=== PATIENT | female | born 1975 | race Caucasian/White ===

== ENCOUNTER 2021-01-28 07:48 | Inpatient (IN) | payer OTHER ==
[~2021-01-28] VITALS: Ht 160 cm; Wt 75.7 kg
[~2021-01-28 07:48] MED LIST: PHENTERMINE H37.5 M1 PO; VITAMIN C500 M2 PO; VITAMIN D350 MC3 PO
[2021-01-28 08:51] VITALS: BP 142/97
[2021-01-28 19:45] VITALS: BP 130/56
--- NOTE | 2021-01-29 02:49 | NUR ---
ADMISSION ASSESSMENT COMPLETED. PT IS ALERT AND ORIENTED. LAP SITES X 8, WITH BANDAIDS. PT VOIDING OKAY. PAIN MANAGED BY NORCO AND IV FENTANYL. ON CLEAR LIQUIDS-TOLERATING.CALLS WITH NEEDS.
[2021-01-29 04:45] VITALS: BP 128/70
[2021-01-29 08:49] VITALS: BP 122/76
--- NOTE | 2021-01-29 12:19 | NUR ---
A/O X 4. Placed on 2L O2 via nasal cannula for O2 of 89%. Right forearm IV infusing D5 0.45 20 meq @ 80 mls/hr. Has 8 abd lapsites covered with bandaids. Got up to bedaside commode with one assist. Wears ABD binder. Has 3 open areas left facial cheek where moles removed-open to air, no drainage noted.
--- NOTE | 2021-01-29 19:07 | PATH ---
[facility] [address] [place] [place] [address] PATHOLOGY RPT PROCEDURE Name: ALICIA GOMEZ Room #: 445-P [facility] M.R.#: [id number] Admission: 01/28/21 Date of : 73 Discharge: Report #: [id number] Path Case #: [id number] [facility] Accession Number: [id number] . 01 Material submitted: . face - FACIAL LESION . 01 Clinical history: . LAPAROSCOPIC HERNIA, INCISIONAL FULGURATION INCISIONAL ENCARCERATED HERNIA, FACIAL LESION . 02 Diagnosis: Skin, facial lesion, biopsy: - Intradermal nevus. - Extends to the deep margin in the sections examined. - Surface epithelium cauterized limiting interpretation. 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 02 Electronically signed: . Shona Reyes MD, Pathologist NPI- [id number] . 01 Gross description: . The specimen is received in formalin, labeled "Alicia Gomez, facial lesion-biopsy" and consists of an unoriented irregular skin shave biopsy (0.7 x 0.7 x 0.4 cm) which is surfaced with case-brown and slightly crusted skin. The surgical margin is inked black. The specimen is serially sectioned and entirely submitted in A1.(SELAWIK; 01/28/2021) DKA/DKA 01/28/2021 1710 Local . 02 Pathologist provided ICD-10: D22.39 . 02 CPT . 050701 Specimen Comment: A courtesy copy of this report has been sent to [phone] Specimen Comment: [phone] Specimen Comment: Report sent to / DR PULIDO Performed at: [address] [id number] MD Maverick Adams MD Phone: [phone] Performed at: [address] [address] PATHOLOGY RPT PROCEDURE Name: JERRICA GOMEZELLE Room #: 445-P [facility] M.RKj#: [id number] Admission: 01/28/21 Date of : 73 Discharge: Report #: [id number] Path Case #: [id number] [address] [place] [id number] MD Shona Reyes MD Phone: [phone]
[2021-01-29 19:18] VITALS: BP 157/97
--- NOTE | 2021-01-30 03:00 | NUR ---
ASSUMED CARE OF PT AT 1900. BEDSIDE REPORT RECIEVED. AYE ASSESSMENT COMPLETE. 8 LAP SITES SECURED C BANDAIDS, NO REDNESS, HEAT, OR DRAINAGE OBSERVED AT THIS TIME. IVF BAG CHANGED AND TUBING CHANGED. PT HAS CONCERNS ABOUT MD NOT SEEING PT TODAY AND CONCERNS ABOUT ABDOMINAL SPASMS . THIS NURSE NOTIFIED DR. REYES, WILL SEE PT TOMORROW, ABDOMINAL SPASMS ARE TO BE EXPECTED, NEW ORDER FOR VALIUM. WILL PROVIDE EDUCATION TO PT ONCE PT WAKES UP D/T PT NOT WANTING TO BE WOKEN UP. IVF RUNNING ORDERED. ASSISTED C REPOSITIONING. ALL NEEDS MET, CALL LIGHT IN REACH.
[2021-01-30 04:32] VITALS: BP 135/85
--- NOTE | 2021-01-30 05:08 | NUR ---
Provided pt education on what Dr. Melton relayed to me, answered pts questions, started pt on schedule valium and administered PRN norco. assisted pt to bsc and back to bed. call light in reach
[2021-01-30 08:27] VITALS: BP 139/79
--- NOTE | 2021-01-30 10:54 | NUR ---
ASSUMED PT CARE THIS AM. PT IS ALERT & ORIENTED X4. PT HAS IV SITE ON RFA. PT TOLERATED DIET THIS AM. WILL ADVANCE DIET TO REGULAR THIS LUNCH. PT IS ON ROOM AIR. PT HAS 8 LAP SITES AND ABDOMINAL BINDER ON. PT C/O OF PAIN AND GIVEN PAIN MEDICATION PER PT REQUEST. WILL CONTINUE TO MONITOR PT. FOLLOW POC.
--- NOTE | 2021-01-30 10:57 | O ---
[facility] [id number] OPERATIVE REPORT Name: ANANDA GOMEZ Room #: 445-P [facility] MBranden#: [id number] Admission: 01/28/21 Attend Phys: Roman Melton MD Discharge: Date of : 73 Report #: [id number] THIS REPORT FOR: cc: Brayan Arndt MD, John M. MD Chu,Roman Dove MD ~ DATE OF SERVICE: 01/28/2021 PREOPERATIVE DIAGNOSES: 1. Incarcerated incisional hernia. 2. Multiple facial lesion consistent with mole on the left side. POSTOPERATIVE DIAGNOSES: 1. Incarcerated incisional hernia. 2. Multiple facial lesion consistent with mole on the left side. PROCEDURE PERFORMED: 1. Laparoscopic repair of incarcerated incisional hernia with mesh and reduction of herniated content. 2. Excision and fulguration of facial skin lesion/mole x 4. ANESTHESIA: General. SURGEON: Roman Melton MD COMPLICATIONS: None. ESTIMATED BLOOD LOSS: 10 mL DESCRIPTION OF PROCEDURE: With the patient under general anesthesia, Davis catheter was placed. IV antibiotic was administered. Abdomen was prepped and draped in sterile fashion. Ioban was used over the skin of the abdomen. The patient had a pretty large hernia located in the abdomen slightly right of the midline. A left upper quadrant cutdown site was used. 0.25% Marcaine was used to anesthetize skin and subcutaneous tissue. The anterior fascia was identified. The anterior fascia was opened under visualization, 0 Vicryl suture placed on the fascial edges. Rectus muscle was spread along the length of its fiber. The posterior rectus sheath was then identified, grasped with hemostat. It was then opened under visualization. Free preperitoneal space was identified. Again, 0 Vicryl suture placed on the posterior fascia for retraction. An 11 mm balloon trocar was placed without difficulty directly into the peritoneal cavity. Balloon was inflated. CO2 was placed. The patient's hernia was found. There is fat tissue that is stuck inside the hernia. There is a smaller hernia about 2 cm in size superiorly that was not incarcerated. The main one measured about 5 cm. Two 5 mm trocars were placed in the left lateral abdomen. The inferior epigastric vessel was seen and preserved from harm. The herniated [address] [address] OPERATIVE REPORT Name: ANANDA GOMEZ Room #: 445-P [facility] M.R.#: [id number] Admission: 01/28/21 Attend Phys: Roman Melton MD Discharge: Date of : 73 Report #: [id number] content was reduced. There is adhesion along the edge of the rim of the hernia and also inside the hernia. Adhesions were taken down using Harmonic scalpel. There was bowel identified in the right edge of the fascial defect. Probably colon as seen on CAT scan. The adhesion that was holding this was fairly thin and easy to divide. A sharp scissor dissection was carried out in an avascular plane. The rest of the adhesion was taken down. The bowel adjacent to this is not harm. After this was free, there was no other scar tissue to the abdominal wall. The hernia defect measured about 8 x 4 cm. Craniocaudad direction is 8 cm. A 6 x 8 inch mesh was used. This was oriented vertically with the 8 cm going from cranial to caudad direction. The balloon trocar was removed. The mesh was placed directly under visualization into the abdominal cavity. The mesh was then oriented. A suture retrieval was placed in through the hernia defect, through the skin into the hernia sac. The balloon portion of the Ventralight mesh with Echo technology and ST was used. The balloon portion was brought out with the suture retrieval. This was hooked to a syringe. The apical was inflated with the balloon. This allowed the mesh to be evenly straightened out. The mesh was positioned and then held in place with a SorbaFix Tacker. Tacker was placed about a centimeter half apart where the inferior epigastric vessel was estimated to be at, and tack was avoiding this area. The left inferior epigastric vessel seems to be out of the way. The right was avoided. Further tacks were also placed more towards the center part of the mesh. Once the mesh was held in place, all the tacks were used, which numbered at 30 tacks. The balloon port was trimmed at the skin. The echo was then freed from the mesh and it was then removed through the 11 mm trocar site. This came out completely. A transfascial suture was then placed at 10, 9, 6 o'clock and then at 2 o'clock and 4 o'clock. The lower part of abdominal wall was noted to be somewhat thin also, but no true fascial defect. This was also covered by the mesh. The meshes stabilized well. No bleeding was identified. The trocar was then removed. CO2 was evacuated. The posterior fascia at the cutdown site was closed with 0 PDS x 2. The anterior fascia was also closed with 0 PDS [id number] x 2. Skin was irrigated and the cutdown site was closed with 5-0 PDS transfascial sutures. Small incisions were closed with Dermabond. Dermabond was also applied over the trocar sites. Band-Aid was used. This portion was completed. The left face was then prepped with ChloraPrep. 0.25% Marcaine was used to anesthetize the skin. The multiple lesions were excised, trimming at the base and then cautery was used to cauterize the base. All these lesions appear same. One of them was sent for pathology. Cautery was used to treat the base and lesion was felt to be thoroughly removed and cauterized at the base. Antibiotic [address] [address] OPERATIVE REPORT Name: PATRICIAANANDA [id number]: 01/28/21 Attend Phys: Roman Melton MD Discharge: Date of : 73 Report #: [id number] ointment was placed over these fulguration sites. The patient was then awakened and taken to recovery room, tolerated the procedure well. <ELECTRONICALLY SIGNED> By: Roman Melton MD 01/30/21 1057 [id number] Roman Melton MD /nt
[2021-01-30 15:30] VITALS: BP 131/85
--- NOTE | 2021-01-30 17:16 | NUR ---
Chart reviewed and case discussed with the care team. Pt is progressing s/p lap hernia repair. She is advancing her diet and increasing her activity today. She was indep prior to admission and lives with her spouse. She has health ins in place for f/u care and cleared by therapy for dc home. No cm interventions are indicated. Anticipate dc tomorrow.
[2021-01-30 20:45] VITALS: BP 149/84
--- NOTE | 2021-01-31 04:53 | NUR ---
PT AMBULATING TO THE BATHROOM WITH SBA. NO BM. BURPING. DENIES NAUSEA OR VOMITING. LAP SITES LOOK OKAY. GIVEN NORCO FOR PAIN, KEEPS BINDER ON. AFEBRILE. A LITTLE ANXIOUS ABOUT GOING HOME TOMORROW. SLOWLY PROGRESSING TOWARDS CARE GOALS. CALL LIGHT WITHIN REACH.
[2021-01-31 07:44] VITALS: BP 150/88
[2021-01-31] MEDS ORDERED: HYDROCODON-ACE1 EAC7 PO (09:38)
[2021-01-31] MEDS ORDERED: DIAZEPAM 5 MG5 M1 PO (09:39)
[2021-01-31 09:48] VITALS: BP 149/84
== END 2021-01-31 12:36 | disposition home or self-care (01) | DRG 354 ==
LOC: OR 07:48 → TBA 07:52 → OR 09:10 → EDSTATUS 10:11 → OR 10:19 → 4S 18:47 → OR 18:47 → 4S 18:47
PROVIDERS: ADMIT Surgery; ATTEND Surgery
PROC: 0WUF4JZ Supplement Abdominal Wall with Synthetic Substitute, Percutaneous Endoscopic Approach (ICD-10-PCS; principal; 2021-01-28)
PROC: 0H5 Skin and Breast, Destruction (ICD-10-PCS; 2021-01-28)
DX: K43.2 Incisional hernia without obstruction or gangrene (principal); J98.11 Atelectasis; Z20.822 Contact with and (suspected) exposure to COVID-19; Z79.899 Other long term (current) drug therapy; Z88.8 Allergy status to other drugs, medicaments and biological substances
CPT/HCPCS: 10102; 50010; 50101; 50386; 50455; 50555; 50687; 50859; 52265; 53065; 53307; 53335; 54022; 54118; 56462; 56525; 56526; 56530; 57092; 58574; 62110; 62900; 70005